=== PATIENT | female | born 1940 | race Caucasian/White ===

== ENCOUNTER → 2016-10-26 | Outpatient (CLI) | payer MEDICARE, OTHER ==
[~2016-10-26] MED LIST: CALC-55 PO; CHOL100018 PO; LISI5TAB7 PO; LORA0.5T PO; METO25TA35; OMEG1CAP6 PO; RANI150T8 PO; SIMV20TA3 PO
== END | disposition home or self-care (01) ==
LOC: CFH 08:04
PROVIDERS: ATTEND Internal Medicine
DX: E04.2 Nontoxic multinodular goiter (principal)
CPT/HCPCS: 76536

== ENCOUNTER 2017-06-24 14:52 | Observation (INO) | payer MEDICARE, OTHER ==
[~2017-06-24] VITALS: Ht 160 cm; Wt 50.4 kg
[~2017-06-24 14:52] MED LIST changes: +CHOL100012 PO; -CHOL100018 PO; +LISI-170 PO; +METO25TA35 PO
[2017-06-24] MEDS ORDERED: ASPIRIN 81 MG TABLET CHEW PO ONE (15:30)
[2017-06-24] MEDS ORDERED: SODIUM CHLORIDE FLUSH 10ML SYR IVF ONE (15:30)
[2017-06-24] MEDS ORDERED: ONDANSETRON 2MG/ML, 2ML ONE (15:48)
[2017-06-24] MEDS ORDERED: ASPIRIN 81 MG TABLET CHEW ONE (15:49)
[2017-06-24 16:00] LABS: BASOPHILS # (AUTO) 0.03 x10^3/uL (0-0.1); BASOPHILS % (AUTO) 0 % (0-1); EOSINOPHILS # (AUTO) 0.08 x10^3/uL (0-0.4); EOSINOPHILS % (AUTO) 1 % (1-7); LYMPHOCYTES # (AUTO) 1.03 x10^3/uL (1-3.4); LYMPHOCYTES % (AUTO) 12 % (22-44); MD NO; MEAN CORPUSCULAR HEMOGLOBIN 25.9 pg (27.0-34.8); MEAN CORPUSCULAR HGB CONC 33.5 g/dL (32.4-35.8); MEAN CORPUSCULAR VOLUME 77.5 fL (80-100); MEAN PLATELET VOLUME 7.1 fL (7.4-10.4); MONOCYTES # (AUTO) 0.63 x10^3/uL (0.2-0.8); MONOCYTES % (AUTO) 8 % (2-9); NEUTROPHILS # (AUTO) 6.74 x10^3/uL (1.8-6.8); NEUTROPHILS % (AUTO) 79 % (42-75); PLATELET COUNT 340 x10^3/uL (130-400); RED BLOOD COUNT 5.44 x10^6/uL (3.82-5.3); RED CELL DISTRIBUTION WIDTH 17.2 % (9.6-15.2)
[2017-06-24 16:00] LABS: INTERNATIONAL NORMALIZED RATIO 0.94 (0.93-1.1); PROTHROMBIN TIME 9.8 Seconds (9.6-11.5)
[2017-06-24 16:02] LABS: ALBUMIN 3.9 g/dL (3.4-5.0); ANION GAP 7 mmol/L (5-15); CALCIUM 9.8 mg/dL (8.5-10.1); CHLORIDE 106 mmol/L (98-107)
[2017-06-24 16:07] LABS: CREATININE 1.01 mg/dL (0.55-1.02); TROPONIN I < 0.015 ng/mL (0.000-0.045)
[2017-06-24] MEDS ORDERED: HYDROcodone/APAP 5/325 TABLET PO PRN (17:00)
[2017-06-24] MEDS ORDERED: LABETALOL 5MG/ML, 20ML IVPush PRN (17:00)
[2017-06-24] MEDS ORDERED: POLYETHYLENE GLYCOL 17 GM PACKET PO PRN (17:00)
[2017-06-24] MEDS ORDERED: ONDANSETRON 2MG/ML, 2ML IVPush PRN (17:00)
[2017-06-24] MEDS ORDERED: ONDANSETRON ODT 4 MG PO PRN (17:00)
[2017-06-24 18:05] VITALS: BP 170/72
[2017-06-24] MEDS ORDERED: MAALOX/HYOSCYAMINE/LIDOCAINE 45 ML BTL PO ONE (19:30)
[2017-06-24 19:38] VITALS: BP 139/73
[2017-06-24] MEDS: LORazepam 0.5MG TABLET PO SCH ×2 (20:01→23:55)
[2017-06-24] MEDS ORDERED: NITROGLYCERIN 0.4 MG/SPRAY SL PRN (20:30)
[2017-06-24] MEDS ORDERED: NITROGLYCERIN 0.4 MG BOTTLE (25 TABS) SL PRN (20:30)
[2017-06-24] MEDS: ENOXAPARIN 40 MG/0.4 ML SQ SCH (20:32)
[2017-06-24] MEDS: METOPROLOL TARTRATE 25 MG TABLET PO SCH (20:32)
[2017-06-25 00:02] LABS: TROPONIN I < 0.015 ng/mL (0.000-0.045)
[2017-06-25] MEDS ORDERED: ALBUTEROL/IPRATROPIUM 2.5MG/0.5MG, 3 ML ONE (02:41)
[2017-06-25 02:49] VITALS: BP 154/82
[2017-06-25] MEDS: LORazepam 0.5MG TABLET PO SCH ×3 (03:08→13:12)
[2017-06-25] MEDS ORDERED: ASPIRIN 81 MG TABLET EC PO SCH (06:00)
[2017-06-25 06:08] LABS: CHLORIDE 109 mmol/L (98-107)
[2017-06-25 06:13] LABS: ALANINE AMINOTRANSFERASE 28 U/L (12-78); ALBUMIN 3.5 g/dL (3.4-5.0); ALKALINE PHOSPHATASE 101 U/L (45-117); ANION GAP 4 mmol/L (5-15); BILIRUBIN,TOTAL 0.4 mg/dL (0.2-1.0); CALCIUM 9.5 mg/dL (8.5-10.1); CHOLESTEROL, TOTAL 185 mg/dL (140-239); HDL CHOLESTEROL (DIRECT) 75 mg/dL (40-60); TOTAL PROTEIN 6.8 g/dL (6.4-8.2); TRIGLYCERIDES 104 mg/dL (50-200); VLDL CHOLESTEROL 21 mg/dL (0-25)
[2017-06-25 06:14] LABS: CHOL/HDL RATIO 2.5; HDL CHOL % 41 % (28-40); LDL CHOLESTEROL,CALCULATED 89 mg/dL (54-169); LDL/HDL RATIO 1.2 (0.5-3.0)
[2017-06-25 06:17] LABS: BASOPHILS # (AUTO) 0.01 x10^3/uL (0-0.1); BASOPHILS % (AUTO) 0 % (0-1); EOSINOPHILS # (AUTO) 0.15 x10^3/uL (0-0.4); EOSINOPHILS % (AUTO) 2 % (1-7); LYMPHOCYTES # (AUTO) 1.11 x10^3/uL (1-3.4); LYMPHOCYTES % (AUTO) 17 % (22-44); MD NO; MEAN CORPUSCULAR HGB CONC 33.2 g/dL (32.4-35.8); MEAN CORPUSCULAR VOLUME 78.3 fL (80-100); MONOCYTES # (AUTO) 0.65 x10^3/uL (0.2-0.8); MONOCYTES % (AUTO) 10 % (2-9); NEUTROPHILS # (AUTO) 4.77 x10^3/uL (1.8-6.8); NEUTROPHILS % (AUTO) 71 % (42-75); PLATELET COUNT 317 x10^3/uL (130-400); RED BLOOD COUNT 5.26 x10^6/uL (3.82-5.3); RED CELL DISTRIBUTION WIDTH 16.8 % (9.6-15.2)
[2017-06-25 07:05] VITALS: BP 160/84
[2017-06-25] MEDS ORDERED: OMEPRAZOLE 20 MG CAPSULE.DR PO SCH (07:30)
[2017-06-25] MEDS: OMEGA-3/FISH OIL CAPSULE PO SCH ×2 (08:29→08:44)
[2017-06-25] MEDS: METOPROLOL TARTRATE 25 MG TABLET PO SCH (08:32)
[2017-06-25] MEDS ORDERED: VITAMIN D3 HOMEMEDPO SCH (09:00)
[2017-06-25] MEDS ORDERED: CALCIUM CARBONATE HOMEMEDPO SCH (09:00)
[2017-06-25] MEDS ORDERED: SENNA/DOCUSATE TABLET PO SCH (09:00)
[2017-06-25] MEDS ORDERED: LISINOPRIL 20 MG TABLET PO SCH (09:00)
[2017-06-25] MEDS ORDERED: REGADENOSON 0.4 MG/5 ML SYRINGE ONE (09:32)
[2017-06-25] MEDS ORDERED: PNEUMOCOCCAL 23 VACCINE IM-VACC ONE (13:30)
[2017-06-25] MEDS: ENOXAPARIN 40 MG/0.4 ML SQ SCH (15:26)
== END 2017-06-25 16:02 | disposition home or self-care (01) ==
LOC: ED 16:35 → INTOOBSV 16:50 → 5SO 16:50
PROVIDERS: ADMIT Hospitalist; ATTEND Hospitalist
DX: R07.2 Precordial pain (principal); I10 Essential (primary) hypertension; E21.3 Hyperparathyroidism, unspecified; K21.9 Gastro-esophageal reflux disease without esophagitis; D75.89 Other specified diseases of blood and blood-forming organs; F41.1 Generalized anxiety disorder; E03.9 Hypothyroidism, unspecified; Z87.891 Personal history of nicotine dependence; Z95.0 Presence of cardiac pacemaker; Z66 Do not resuscitate; Z23 Encounter for immunization
CPT/HCPCS: 36415; 71045; 78452; 80048; 80053; 80061; 82040; 82728; 83540; 83550; 84439; 84484; 85025; 85610; 85730; 90471; 90732; 93005; 93017; 93306; 96372; 99285; A9502; C9898; G0378; J1650; J2785

== ENCOUNTER 2017-07-12 02:33 | Observation (INO) | payer MEDICARE, OTHER ==
[~2017-07-12] VITALS: Ht 160 cm; Wt 48.4 kg
[2017-07-12] MEDS ORDERED: SODIUM CHLORIDE FLUSH 10ML SYR IVF ONE (03:00)
[2017-07-12 03:25] LABS: BASOPHILS # (AUTO) 0.02 x10^3/uL (0-0.1); BASOPHILS % (AUTO) 0 % (0-1); EOSINOPHILS # (AUTO) 0.23 x10^3/uL (0-0.4); EOSINOPHILS % (AUTO) 3 % (1-7); LYMPHOCYTES # (AUTO) 1.82 x10^3/uL (1-3.4); LYMPHOCYTES % (AUTO) 25 % (22-44); MD NO; MEAN CORPUSCULAR HEMOGLOBIN 26.7 pg (27.0-34.8); MEAN CORPUSCULAR HGB CONC 33.8 g/dL (32.4-35.8); MEAN CORPUSCULAR VOLUME 78.9 fL (80-100); MEAN PLATELET VOLUME 6.8 fL (7.4-10.4); MONOCYTES # (AUTO) 0.48 x10^3/uL (0.2-0.8); MONOCYTES % (AUTO) 7 % (2-9); NEUTROPHILS # (AUTO) 4.79 x10^3/uL (1.8-6.8); NEUTROPHILS % (AUTO) 65 % (42-75); PLATELET COUNT 363 x10^3/uL (130-400); RED BLOOD COUNT 5.49 x10^6/uL (3.82-5.3); RED CELL DISTRIBUTION WIDTH 16.9 % (9.6-15.2)
[2017-07-12 03:37] LABS: ALBUMIN 4.2 g/dL (3.4-5.0); ANION GAP 9 mmol/L (5-15); CALCIUM 9.7 mg/dL (8.5-10.1); CHLORIDE 106 mmol/L (98-107)
[2017-07-12 03:39] LABS: INTERNATIONAL NORMALIZED RATIO 0.96 (0.93-1.1)
[2017-07-12 03:44] LABS: ALANINE AMINOTRANSFERASE 35 U/L (12-78); ALKALINE PHOSPHATASE 105 U/L (45-117); BILIRUBIN,TOTAL 0.5 mg/dL (0.2-1.0); CREATININE 0.94 mg/dL (0.55-1.02); TOTAL PROTEIN 7.9 g/dL (6.4-8.2); TROPONIN I < 0.015 ng/mL (0.000-0.045)
[2017-07-12] MEDS ORDERED: ASPIRIN 81 MG TABLET CHEW PO ONE (05:00)
[2017-07-12] MEDS ORDERED: ASPIRIN 81 MG TABLET CHEW ONE (05:36)
[2017-07-12 06:00] VITALS: BP 169/72
[2017-07-12] MEDS ORDERED: hydrALAzine 20 MG/ML, 1ML IVPush PRN (07:30)
[2017-07-12] MEDS ORDERED: TEMAZEPAM 15 MG CAPSULE PO PRN (07:30)
[2017-07-12] MEDS ORDERED: ACETAMINOPHEN 325 MG TABLET PO PRN (07:30)
[2017-07-12] MEDS ORDERED: LORazepam 0.5MG TABLET PO SCH (07:30)
[2017-07-12] MEDS ORDERED: ONDANSETRON 2MG/ML, 2ML IVPush PRN (07:30)
[2017-07-12] MEDS: SUCRALFATE 1 GM/10 ML UDC PO SCH ×4 (08:02→20:26)
[2017-07-12] MEDS: PANTOPROZOLE 40MG TABLET PO SCH ×2 (08:02→20:26)
[2017-07-12] MEDS: OMEGA-3/FISH OIL CAPSULE PO SCH (08:02)
[2017-07-12] MEDS: METOPROLOL TARTRATE 25 MG TABLET PO SCH ×2 (08:02→20:26)
[2017-07-12] MEDS: ENOXAPARIN 40 MG/0.4 ML SQ SCH (08:03)
[2017-07-12] MEDS: CALCIUM/VITAMIN D3 250-125 TABLET PO SCH (08:03)
[2017-07-12 08:06] LABS: FREE T4 (FREE THYROXINE) 1.72 ng/dL (0.76-1.46)
[2017-07-12 08:11] VITALS: BP 176/76
[2017-07-12 08:58] LABS: THYROID STIMULATING HORMONE < 0.005 mIU/L (0.358-3.740)
[2017-07-12] MEDS ORDERED: LISINOPRIL 20 MG TABLET PO SCH (09:00)
[2017-07-12 13:20] VITALS: BP 90/47
[2017-07-12] MEDS ORDERED: LORazepam 0.5MG TABLET PO PRN (13:30)
[2017-07-12 16:11] LABS: TROPONIN I < 0.015 ng/mL (0.000-0.045)
[2017-07-12 19:43] VITALS: BP 118/62
[2017-07-12 22:10] VITALS: BP 159/68
[2017-07-13 00:32] VITALS: BP 151/71
[2017-07-13 01:08] LABS: TROPONIN I < 0.015 ng/mL (0.000-0.045)
[2017-07-13 05:22] VITALS: BP 134/72
[2017-07-13 05:54] VITALS: BP 129/70
[2017-07-13 06:15] LABS: CHOL/HDL RATIO 2.5; LDL/HDL RATIO 1.2 (0.5-3.0)
[2017-07-13] MEDS: SUCRALFATE 1 GM/10 ML UDC PO SCH (06:30)
[2017-07-13 07:22] VITALS: BP 134/73
[2017-07-13] MEDS: ENOXAPARIN 40 MG/0.4 ML SQ SCH (07:30)
[2017-07-13] MEDS: CALCIUM/VITAMIN D3 250-125 TABLET PO SCH (08:59)
[2017-07-13] MEDS: OMEGA-3/FISH OIL CAPSULE PO SCH (08:59)
[2017-07-13] MEDS: METOPROLOL TARTRATE 25 MG TABLET PO SCH (08:59)
[2017-07-13] MEDS: PANTOPROZOLE 40MG TABLET PO SCH (08:59)
[2017-07-13] MEDS ORDERED: LISINOPRIL 20 MG TABLET PO SCH (09:00)
[2017-07-13] MEDS ORDERED: SUCR1ORA5 PO (09:16)
[2017-07-13] MEDS ORDERED: OMEP-110 PO (09:16)
[2017-07-13] MEDS ORDERED: SIMV20TA PO (09:19)
== END 2017-07-13 12:00 | disposition home or self-care (01) ==
LOC: ED 02:53 → EDIP 05:36 → INTOOBSV 05:36 → 5SO 05:55 → 3NE 07-13 05:52 → DCLOUNGE 07-13 11:50
PROVIDERS: ADMIT Hospitalist; ATTEND Internal Medicine
DX: R07.89 Other chest pain (principal); I10 Essential (primary) hypertension; F10.10 Alcohol abuse, uncomplicated; K21.9 Gastro-esophageal reflux disease without esophagitis; E78.5 Hyperlipidemia, unspecified; Z95.0 Presence of cardiac pacemaker
CPT/HCPCS: 36415; 71045; 80053; 80061; 83880; 84439; 84443; 84484; 85025; 85610; 85730; 93005; 96372; 97162; 97165; 99285; G0378; G8978; G8979; G8980; J1650; J2405

== ENCOUNTER 2018-01-19 15:37 | Observation (INO) | payer MEDICARE, OTHER ==
[~2018-01-19] VITALS: Ht 160 cm; Wt 47.4 kg
[~2018-01-19 15:37] MED LIST changes: +OMEP-110 PO; +RANI150T23 PO; -RANI150T8 PO; +SIMV20TA PO; +SUCR1ORA5 PO
[2018-01-19] MEDS ORDERED: ASPIRIN 81 MG TABLET CHEW PO ONE (16:00)
[2018-01-19] MEDS ORDERED: SODIUM CHLORIDE FLUSH 10ML SYR IVF ONE (16:00)
[2018-01-19] MEDS ORDERED: PLEASE ENTER HEIGHT AND WEIGHT MC SCH (16:00)
[2018-01-19 16:16] LABS: BASOPHILS # (AUTO) 0.01 x10^3/uL (0-0.1); BASOPHILS % (AUTO) 0 % (0-1); EOSINOPHILS # (AUTO) 0.12 x10^3/uL (0-0.4); EOSINOPHILS % (AUTO) 1 % (1-7); LYMPHOCYTES # (AUTO) 1.25 x10^3/uL (1-3.4); LYMPHOCYTES % (AUTO) 15 % (22-44); MD NO; MEAN CORPUSCULAR HEMOGLOBIN 29.7 pg (27.0-34.8); MEAN CORPUSCULAR HGB CONC 34.4 g/dL (32.4-35.8); MEAN CORPUSCULAR VOLUME 86.1 fL (80-100); MEAN PLATELET VOLUME 6.6 fL (7.4-10.4); MONOCYTES # (AUTO) 0.63 x10^3/uL (0.2-0.8); MONOCYTES % (AUTO) 7 % (2-9); NEUTROPHILS # (AUTO) 6.59 x10^3/uL (1.8-6.8); NEUTROPHILS % (AUTO) 77 % (42-75); PLATELET COUNT 338 x10^3/uL (130-400); RED BLOOD COUNT 4.64 x10^6/uL (3.82-5.3); RED CELL DISTRIBUTION WIDTH 14.5 % (9.6-15.2)
[2018-01-19] MEDS ORDERED: METH10TA6 PO (16:17)
[2018-01-19] MEDS ORDERED: IRBE150T25 PO (16:17)
[2018-01-19] MEDS ORDERED: ASPIRIN 81 MG TABLET CHEW ONE (16:19)
[2018-01-19 16:28] LABS: ALBUMIN 3.9 g/dL (3.4-5.0); ANION GAP 6 mmol/L (5-15); CALCIUM 9.1 mg/dL (8.5-10.1); CHLORIDE 102 mmol/L (98-107)
[2018-01-19 16:33] LABS: ALANINE AMINOTRANSFERASE 27 U/L (12-78); ALKALINE PHOSPHATASE 82 U/L (45-117); BILIRUBIN,TOTAL 0.7 mg/dL (0.2-1.0); CREATININE 0.95 mg/dL (0.55-1.02); TOTAL PROTEIN 6.8 g/dL (6.4-8.2); TROPONIN I < 0.015 ng/mL (0.000-0.045)
[2018-01-19] MEDS ORDERED: LORazepam 0.5MG TABLET ONE (16:49)
[2018-01-19] MEDS ORDERED: MAALOX/HYOSCYAMINE/LIDOCAINE 45 ML BTL ONE (16:50)
[2018-01-19] MEDS ORDERED: MAALOX/HYOSCYAMINE/LIDOCAINE 45 ML BTL PO ONE (17:00)
[2018-01-19] MEDS ORDERED: LORazepam 0.5MG TABLET PO ONE (17:00)
[2018-01-19 17:23] LABS: THYROID STIMULATING HORMONE 0.635 mIU/L (0.358-3.740)
[2018-01-19] MEDS ORDERED: FAMOTIDINE 20 MG/2 ML IVPush ONE (17:30)
[2018-01-19] MEDS ORDERED: FAMOTIDINE 20 MG/2 ML ONE (17:32)
[2018-01-19 18:25] VITALS: BP 166/79
[2018-01-19] MEDS ORDERED: ACETAMINOPHEN 325 MG TABLET PO PRN (19:00)
[2018-01-19] MEDS ORDERED: MAALOX/HYOSCYAMINE/LIDOCAINE 45 ML BTL PO PRN (19:00)
[2018-01-19] MEDS ORDERED: POLYETHYLENE GLYCOL 17 GM PACKET PO PRN (19:00)
[2018-01-19] MEDS ORDERED: ONDANSETRON 2MG/ML, 2ML IVPush PRN (19:00)
[2018-01-19] MEDS: LORazepam 0.5MG TABLET PO SCH (19:00)
[2018-01-19] MEDS ORDERED: BISACODYL 10 MG SUPP PR PRN (19:00)
[2018-01-19 20:03] VITALS: BP 154/75
[2018-01-19] MEDS ORDERED: SIMVASTATIN 20 MG TABLET PO SCH (21:00)
[2018-01-19] MEDS: METOPROLOL TARTRATE 25 MG TABLET PO SCH (22:25)
[2018-01-19] MEDS: OMEPRAZOLE 20 MG CAPSULE.DR PO SCH (22:26)
[2018-01-19] MEDS: SODIUM CHLORIDE FLUSH 10ML SYR IVF SCH (22:27)
[2018-01-19 22:30] VITALS: BP 138/75
[2018-01-19 22:35] LABS: TROPONIN I < 0.015 ng/mL (0.000-0.045)
[2018-01-20] MEDS: LORazepam 0.5MG TABLET PO SCH ×2 (01:00→07:00)
[2018-01-20 02:00] VITALS: BP 150/79
[2018-01-20 04:44] LABS: TROPONIN I < 0.015 ng/mL (0.000-0.045)
[2018-01-20 07:39] VITALS: BP 155/77
[2018-01-20] MEDS ORDERED: LISINOPRIL 20 MG TABLET PO SCH (09:00)
[2018-01-20] MEDS ORDERED: CALCIUM/VITAMIN D3 250-125 TABLET PO SCH (09:00)
[2018-01-20] MEDS ORDERED: OMEGA-3/FISH OIL CAPSULE PO SCH (09:00)
[2018-01-20] MEDS: SODIUM CHLORIDE FLUSH 10ML SYR IVF SCH (09:00)
[2018-01-20] MEDS ORDERED: SENNA/DOCUSATE TABLET PO SCH (09:00)
[2018-01-20] MEDS ORDERED: IRBESARTAN 150 MG TABLET PO SCH (09:00)
[2018-01-20] MEDS: OMEPRAZOLE 20 MG CAPSULE.DR PO SCH (09:13)
[2018-01-20] MEDS: METOPROLOL TARTRATE 25 MG TABLET PO SCH (09:14)
== END 2018-01-20 10:20 | disposition home or self-care (01) ==
LOC: ED 17:26 → EDIP 17:27 → INTOOBSV 17:27 → ED 17:32 → 5SO 18:24 → DCLOUNGE 01-20 10:10
PROVIDERS: ADMIT Hospitalist; ATTEND Hospitalist
DX: K21.9 Gastro-esophageal reflux disease without esophagitis (principal); E03.9 Hypothyroidism, unspecified; E05.90 Thyrotoxicosis, unspecified without thyrotoxic crisis or storm; E78.5 Hyperlipidemia, unspecified; I10 Essential (primary) hypertension; I44.7 Left bundle-branch block, unspecified; I49.5 Sick sinus syndrome; Z95.0 Presence of cardiac pacemaker
CPT/HCPCS: 36415; 71045; 80053; 83690; 83880; 84443; 84484; 85025; 93005; 96374; 99285; G0378; S0028

== ENCOUNTER → 2018-04-18 | Outpatient (CLI) | payer MEDICARE, OTHER ==
[~2018-04-18] MED LIST changes: +IRBE150T25 PO; +METH10TA6 PO
== END | disposition home or self-care (01) ==
LOC: CFH 10:18
PROVIDERS: ATTEND Licensed Practical Nurse
DX: Z12.31 Encounter for screening mammogram for malignant neoplasm of breast (principal); Z13.820 Encounter for screening for osteoporosis; N95.8 Other specified menopausal and perimenopausal disorders
CPT/HCPCS: 77080; 77067

== ENCOUNTER → 2020-06-30 | Outpatient (CLI) | payer MEDICARE, OTHER ==
[~2020-06-30] MED LIST changes: +AMLO-150 PO; +AMLO-211 PO; -IRBE150T25 PO; +IRBE150T9 PO; +METO25TA91 PO; +RANI-467 PO; -RANI150T23 PO; +SIMV20TA19 PO; -SIMV20TA3 PO
== END | disposition home or self-care (01) ==
LOC: CFH 08:29
PROVIDERS: ATTEND Internal Medicine
DX: Z12.31 Encounter for screening mammogram for malignant neoplasm of breast (principal); Z13.820 Encounter for screening for osteoporosis; N95.9 Unspecified menopausal and perimenopausal disorder; M81.0 Age-related osteoporosis without current pathological fracture
CPT/HCPCS: 77063; 77067; 77080